=== PATIENT | female | born 1995 | race Two or more races ===

== ENCOUNTER 2022-08-21 08:15 | Outpatient (CLI) | payer OTHER | END 2022-08-21 09:41 | disposition home or self-care (01) | LOC: PRENATAL 08:15 | PROVIDERS: ATTEND Obstetrics & Gynecology Maternal & Fetal Medicine | DX: O35.9XX0 Maternal care for (suspected) fetal abnormality and damage, unspecified, not applicable or unspecified (principal); O35.3XX0 Maternal care for (suspected) damage to fetus from viral disease in mother, not applicable or unspecified; O99.210 Obesity complicating pregnancy, unspecified trimester; Z3A.21 21 weeks gestation of pregnancy ==

== ENCOUNTER 2022-09-29 18:03 | Outpatient (CLI) | payer OTHER ==
[2022-09-29] MEDS ORDERED: PRENATAL CAPLE1 EAC1 PO (18:18)
== END 2022-09-29 21:52 | disposition home or self-care (01) ==
LOC: OBS/DEL 18:03
PROVIDERS: ATTEND Obstetrics & Gynecology
DX: O36.8120 Decreased fetal movements, second trimester, not applicable or unspecified (principal); Z3A.26 26 weeks gestation of pregnancy

== ENCOUNTER 2022-11-20 08:35 | Outpatient (CLI) | payer OTHER ==
[~2022-11-20 08:35] MED LIST: PRENATAL CAPLE1 EAC1 PO
== END 2022-11-20 09:45 | disposition home or self-care (01) ==
LOC: PRENATAL 08:35
PROVIDERS: ATTEND Obstetrics & Gynecology Maternal & Fetal Medicine
DX: O26.849 Uterine size-date discrepancy, unspecified trimester (principal); O36.8199 Decreased fetal movements, unspecified trimester, other fetus; O99.210 Obesity complicating pregnancy, unspecified trimester; Z14.8 Genetic carrier of other disease; Z3A.24 24 weeks gestation of pregnancy

== ENCOUNTER 2022-12-20 13:15 | Inpatient (IN) | payer OTHER ==
[~2022-12-20] VITALS: Ht 162.6 cm; Wt 98.9 kg
== END 2023-01-12 14:49 | disposition home or self-care (01) | DRG 788 ==
LOC: LDR 12-31 13:15 → OB/GYN 01-09 01:09 → O/R 01-09 01:09 → LDR 01-09 01:09 → O/R 01-09 18:02 → OB/GYN 01-09 19:41
PROVIDERS: ADMIT Obstetrics & Gynecology; ATTEND Obstetrics & Gynecology
PROC: 4A1HXCZ Monitoring of Products of Conception, Cardiac Rate, External Approach (ICD-10-PCS; 2023-01-09)
PROC: 10D00Z1 Extraction of Products of Conception, Low, Open Approach (ICD-10-PCS; principal; 2023-01-09 20:45)
DX: O62.1 Secondary uterine inertia (principal); O48.0 Post-term pregnancy; Z3A.41 41 weeks gestation of pregnancy; Z88.0 Allergy status to penicillin; Z37.0 Single live birth; Z20.822 Contact with and (suspected) exposure to COVID-19